=== PATIENT | female | born 1985 ===

== ENCOUNTER → 2021-05-08 13:51 | Outpatient (BNVA) | payer MEDICARE, SELFPAY | PROVIDERS: PCP Internal Medicine; Visit Provider Psychiatry & Neurology Neurology | DX: G24.3 Spasmodic torticollis (principal); G43.909 Migraine, unspecified, not intractable, without status migrainosus | CPT/HCPCS: 64616; 99211; J0585 ==

== ENCOUNTER → 2021-08-07 10:23 | Outpatient (BNVA) | payer MEDICARE, SELFPAY | PROVIDERS: PCP Family Medicine; Visit Provider Psychiatry & Neurology Neurology | DX: G24.3 Spasmodic torticollis (principal); G43.909 Migraine, unspecified, not intractable, without status migrainosus; H53.9 Unspecified visual disturbance; R42 Dizziness and giddiness | CPT/HCPCS: 64616; 99211; J0585 ==

== ENCOUNTER 2021-08-28 18:27 | Outpatient (REF) | payer MEDICARE, MEDICAID, SELFPAY ==
--- NOTE | ~2021-08-28 | MR_ITS ---
EXAMINATION: MR ANGIOGRAPHY BRAIN WITHOUT CONTRAST MRI BRAIN WITHOUT CONTRAST CLINICAL INFORMATION: 36-year-old with migraines, unspecified, not intractable. COMPARISON: None. MR BRAIN TECHNIQUE: Multiplanar multisequence MR imaging of the brain was done without IV contrast. FINDINGS: Brain Volume: Within normal limits. Structural: No malformations. Brain and Meninges: DWI sequence demonstrates no restricted diffusion to suggest acute or subacute cerebral ischemia. The brain is normal in morphology. Plummer-white matter interface is preserved. There is a 3 mm linear zone of FLAIR signal hyperintensity in the left frontal subcortical white matter which is nonspecific, with a similar small focus in the left subcortical parietal white matter. Otherwise, the brain is normal in signal intensity. Gradient refocused imaging demonstrates no evidence for hemorrhage, hemosiderin staining or abnormal mineral deposition. No extra-axial fluid collections, space-occupying process or mass effect are identified. Ventricles and Subarachnoid Spaces: The ventricular system and subarachnoid spaces are within normal limits without hydrocephalus. Orbital Structures: The visualized orbital structures are grossly unremarkable within the limitations of the study. Vascular: Signal voids are noted in the visualized major intracranial vessels. Osseous Structures, Sinuses/Mastoids, Extracranial Soft Tissues: 1 cm retention cyst right maxillary sinus and minor mucosal thickening in the ethmoid complex. Mild nasal septal deviation to the right. MR/MR head/brain wo con IMPRESSION: 1. A few small linear foci of FLAIR signal hyperintensity noted in the subcortical white matter of the left frontal and parietal lobes, which are nonspecific findings of indeterminate significance. 2. Otherwise unremarkable noncontrast MRI of the brain. 3. Minor sinonasal findings as discussed above. MRA BRAIN TECHNIQUE: 3-D [id number] MR angiography of the intracranial circulation was done with multiplanar reformatted reconstructions. FINDINGS: The visualized intracranial vessels demonstrate normal caliber and configuration. There is no evidence for major vessel occlusion or significant focal arterial stenosis. No intracranial aneurysms are identified and there are no high-flow vascular malformations. IMPRESSION: Normal intracranial MRA.
--- NOTE | ~2021-08-28 | MR_ITS ---
EXAMINATION: MR ANGIOGRAPHY BRAIN WITHOUT CONTRAST MRI BRAIN WITHOUT CONTRAST CLINICAL INFORMATION: 36-year-old with migraines, unspecified, not intractable. COMPARISON: None. MR BRAIN TECHNIQUE: Multiplanar multisequence MR imaging of the brain was done without IV contrast. FINDINGS: Brain Volume: Within normal limits. Structural: No malformations. Brain and Meninges: DWI sequence demonstrates no restricted diffusion to suggest acute or subacute cerebral ischemia. The brain is normal in morphology. Plummer-white matter interface is preserved. There is a 3 mm linear zone of FLAIR signal hyperintensity in the left frontal subcortical white matter which is nonspecific, with a similar small focus in the left subcortical parietal white matter. Otherwise, the brain is normal in signal intensity. Gradient refocused imaging demonstrates no evidence for hemorrhage, hemosiderin staining or abnormal mineral deposition. No extra-axial fluid collections, space-occupying process or mass effect are identified. Ventricles and Subarachnoid Spaces: The ventricular system and subarachnoid spaces are within normal limits without hydrocephalus. Orbital Structures: The visualized orbital structures are grossly unremarkable within the limitations of the study. Vascular: Signal voids are noted in the visualized major intracranial vessels. Osseous Structures, Sinuses/Mastoids, Extracranial Soft Tissues: 1 cm retention cyst right maxillary sinus and minor mucosal thickening in the ethmoid complex. Mild nasal septal deviation to the right. MR/MR angio head wo con IMPRESSION: 1. A few small linear foci of FLAIR signal hyperintensity noted in the subcortical white matter of the left frontal and parietal lobes, which are nonspecific findings of indeterminate significance. 2. Otherwise unremarkable noncontrast MRI of the brain. 3. Minor sinonasal findings as discussed above. MRA BRAIN TECHNIQUE: 3-D ydes-bm-ogyial MR angiography of the intracranial circulation was done with multiplanar reformatted reconstructions. FINDINGS: The visualized intracranial vessels demonstrate normal caliber and configuration. There is no evidence for major vessel occlusion or significant focal arterial stenosis. No intracranial aneurysms are identified and there are no high-flow vascular malformations. IMPRESSION: Normal intracranial MRA.
== END 2021-08-28 18:28 | disposition home or self-care (01) ==
LOC: HO.MRI 18:27
PROVIDERS: Visit Provider Psychiatry & Neurology Neurology
DX: G43.909 Migraine, unspecified, not intractable, without status migrainosus (principal); R42 Dizziness and giddiness; H53.9 Unspecified visual disturbance
CPT/HCPCS: 70544; 70551

== ENCOUNTER → 2021-11-16 14:58 | Outpatient (BNVA) | payer MEDICARE, SELFPAY | PROVIDERS: PCP Family Medicine; Visit Provider Psychiatry & Neurology Neurology | DX: M47.812 Spondylosis without myelopathy or radiculopathy, cervical region (principal); G43.909 Migraine, unspecified, not intractable, without status migrainosus; G24.09 Other drug induced dystonia; T48.295A Adverse effect of other drugs acting on muscles, initial encounter; R42 Dizziness and giddiness; H53.9 Unspecified visual disturbance | CPT/HCPCS: 64616; 99211; J0585 ==

== ENCOUNTER 2021-12-25 15:53 | Outpatient (REF) | payer MEDICARE, BC, SELFPAY ==
--- NOTE | ~2021-12-25 | XR_ITS ---
EXAMINATION: XR CERVICAL SPINE CLINICAL INFORMATION: M47.812 - Spondylosis without myelopathy or radiculopathy, cervical region COMPARISON: MR brain 08/28/2021 TECHNIQUE: Radiographs cervical spine are obtained in 5 views. FINDINGS: There is straightening cervical lordosis. There are postsurgical changes at C5-C6 with zero profile implant. The hardware is intact. There is no destructive process or osteolysis. No vertebral compression, spondylolisthesis, or prevertebral soft tissue swelling. The odontoid appears intact. No focal disc narrowing or erosive change. There is mild spurring anterior inferior C6 vertebral body. No perched facet. XR/XR cervical spine 3V IMPRESSION: -Postsurgical changes C5-C6. Hardware intact. No destructive process or osteolysis. -No vertebral compression, spondylolisthesis, or prevertebral soft tissue swelling.
== END 2021-12-25 15:54 | disposition home or self-care (01) ==
LOC: HO.XRAY 15:53
PROVIDERS: Visit Provider Psychiatry & Neurology Neurology
DX: M47.812 Spondylosis without myelopathy or radiculopathy, cervical region (principal)
CPT/HCPCS: 72040

== ENCOUNTER → 2021-12-28 10:54 | Outpatient (BNVA) | payer MEDICARE, BC, SELFPAY | PROVIDERS: PCP Family Medicine; Visit Provider Nurse Practitioner Family | DX: M47.812 Spondylosis without myelopathy or radiculopathy, cervical region (principal); M54.81 Occipital neuralgia; G24.3 Spasmodic torticollis | CPT/HCPCS: 99212 ==

== ENCOUNTER 2022-01-04 07:23 | Outpatient (REF) | payer MEDICARE, BC, SELFPAY ==
--- NOTE | ~2022-01-04 | MR_ITS ---
EXAMINATION: MR CERVICAL SPINE WITHOUT CONTRAST CLINICAL INFORMATION: Headaches. Neck pain. COMPARISON: X-ray dated 12/25/2021. TECHNIQUE: Multiplanar, multisequential imaging of the cervical spine was performed without contrast. FINDINGS: VERTEBRAL BODIES AND PARASPINAL SOFT TISSUES: Status post anterior cervical fusion with hardware instrumentation at the C5-C6 level. Mild rightward curvature of the mid cervical spine. The marrow signal is homogeneous. No compression fractures or subluxations are seen. The paraspinal soft tissues are normal. The vertebral artery flow-voids are maintained. The lung apices are clear. CERVICOMEDULLARY JUNCTION AND VISUALIZED POSTERIOR FOSSA: The craniovertebral junction and imaged portions of the brain parenchyma appear normal. No cord signal abnormality or syrinx is seen. SPINAL LEVELS: C2-C3: No disc pathology. Minimal endplate spurring without central canal stenosis or foraminal narrowing. C3-C4: Shallow disc-osteophyte complex without central canal stenosis or foraminal narrowing. C4-C5: No disc pathology. Mild endplate spurring. No central canal stenosis or foraminal narrowing. C5-C6: Post fusion changes with mild endplate spurring. No central canal stenosis. Kmxf-lx-[id number] left foraminal narrowing. C6-C7: Minimal annular bulge without central canal stenosis or foraminal encroachment. Mild posterior ligamentous thickening. C7-T1: No disc pathology. Patent central canal and foramina. MR/MR cervical spine wo con IMPRESSION: Very mild spondylitic changes, status post anterior cervical discectomy and fusion with hardware instrumentation at the C5-C6 level. No central canal stenosis or focal disc protrusion. Dmbo-vu-[id number] left foraminal narrowing at the C5-C6 level.
== END 2022-01-04 07:24 | disposition home or self-care (01) ==
LOC: HO.MRI 07:23
PROVIDERS: Visit Provider Nurse Practitioner Family
DX: M47.812 Spondylosis without myelopathy or radiculopathy, cervical region (principal); G24.3 Spasmodic torticollis; M54.81 Occipital neuralgia; R51.9 Headache, unspecified; Z98.1 Arthrodesis status
CPT/HCPCS: 72141

== ENCOUNTER 2022-04-26 11:00 | Outpatient (RCR) | payer MEDICARE, BC, SELFPAY | END 2022-04-26 11:52 | disposition home or self-care (01) | LOC: HO.PT 11:00 | PROVIDERS: Visit Provider Obstetrics & Gynecology | DX: R10.2 Pelvic and perineal pain (principal); N80.9 Endometriosis, unspecified | CPT/HCPCS: 97110; 97112; 97140; 97161 ==

== ENCOUNTER 2023-01-18 15:18 | Outpatient (AMB) | payer MEDICARE, BC, SELFPAY ==
--- NOTE | 2023-01-18 15:20 | MHC.OFFVIS ---
Intake Vital Signs 01/18/23 15:24 Height 5 ft 2 in Weight 109 lb 8 oz BMI 20.0 BP 114/78 Blood Pressure Location Rt brachial Position Sitting Intake Visit Reasons: f/u appointment for headaches-Confirmed Intake Note: Patient presents for appointments headaches. Patient states my headaches are a little bit better the imitrex helps . Allergies paprika Allergy (Severe, Verified 01/18/23 15:26) Anaphylaxis acetaminophen [From Vicodin] Allergy (Mild, Verified 01/18/23 15:26) Itching hydrocodone [From Vicodin] Allergy (Mild, Verified 01/18/23 15:26) Itching oxycodone [From PERCOCET] Allergy (Unknown, Verified 01/18/23 15:26) ITCH AND HIVES Medication List - Last Reconciled 01/18/23 by WES Bolden baclofen 10 mg PO TID 30 days cetirizine (Allergy Relief (cetirizine)) 10 mg PO DAILY epinephrine 0.3 mg IM Q4H PRN gabapentin 300 mg PO BEDTIME 30 days gabapentin 100 - 200 mg (1 - 2 x 100 mg) PO BID 30 days onabotulinumtoxinA (Botox) 200 units to be injected by physician to neck muscles for dystonia; pyridostigmine bromide 60 mg PO TID sumatriptan succinate 50 - 100 mg orally at onset of headache, may repeat in 2 hrs PRN; max 2 tabs per day or 4 tabs/week (may take with Ibuprofen) 30 days topiramate 25 mg PO BID 30 days trazodone 25 - 50 mg PO BEDTIME HPI HPI Comments History of Present Illness Details 37-yr-old female presents for f/u visit. 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 Pt reports her headaches have been significantly better since she started wearing a neuroprism. Sumatriptan is effective. She continues to have neck tightness, spasms, tension- worsened by stress, end of day. No head tremor. She cannot afford the Botox co-pays. She is using Baclofen prn- 2-3 times per week. 12/28, MR/MR cervical spine wo con IMPRESSION: Very mild spondylitic changes, status post anterior cervical discectomy and fusion with hardware instrumentation at the C5-C6 level. No central canal stenosis or focal disc protrusion. Qpiv-ps-[id number] left foraminal narrowing at the C5-C6 level. PFSH Medical History (Updated 12/28/21 @ 12:02 by WES Bolden) Thyroid activity decreased PFO (patent foramen ovale) Cervical spondylosis PVC (premature ventricular contraction) Acarophobia Anxiety Bipolar 2 disorder Surgical History (Updated 01/18/23 @ 15:27 by ZAHEER Mitchell) H/O breast biopsy Family History Mother PCO (posterior capsular opacification), left Hx of coronary angioplasty Social History Alcohol intake: never Patient Tobacco Use Status: Never used Tobacco Review of Systems Const All systems reviewed & are unremarkable except as noted in HPI and below Physical Exam Vital Signs: Last Vital Signs BP 114/78 01/18/23 15:24 BMI result Body Mass Index 20.0 Const General: cooperative and no acute distress Orientation/consciousness: patient oriented x3 HEENT Head: Yes normocephalic Resp Effort & Inspection: normal respiratory effort and able to speak in complete sentences Neuro Other: Bilateral posterior cervical tightness General: patient oriented x3, gait normal and CN's II-XI intact bilaterally Cognition (Neuro): normal cognition Motor exam (neuro): 5/5 motor strength present throughout Psych Appearance: grossly normal Mental Status: mental status grossly normal Speech and movement: Normal speech and movement present Affect: normal affect Attitude: cooperative Thought process: Normal thought process present Thought content: Normal thought content present Insight: Good insight present (Psych) Judgement: Good judgement present (Psych) Assessment & Plan Assessment & Plan (1) Migraine: Code(s): G43.909 - Migraine, unspecified, not intractable, without status migrainosus (2) Spasmodic torticollis: Code(s): G24.3 - Spasmodic torticollis (3) Occipital neuralgia of right side: Code(s): M54.81 - Occipital neuralgia Plan C-spine MRI- Very mild spondylitic changes, status post anterior cervical discectomy and fusion with hardware at C5-C6. [id number] left foraminal narrowing at C5-C6. Take Baclofen 10mg qhs, may use prn up to max 10mg tid. Continue Gabapentin 200mg bid and 300mg qhs. Continue Topiramate. Continue Sumatriptan prn. Pt would benefit from resuming Botox when able. f/u in 6 months or sooner prn Medications: Refilled baclofen 10 mg PO TID 30 days 90 tabs 3RF gabapentin 100 - 200 mg (1 - 2 x 100 mg) PO BID 30 days 120 caps 6RF Coding Level of Care Code Est Pt Level 4 (55784) Diagnoses Migraine G43.909 Spasmodic torticollis G24.3 Occipital neuralgia of right side M54.81
[2023-01-18 15:24] VITALS: BP 114/78
== END 2023-01-18 16:00 ==
PROVIDERS: PCP Family Medicine; Visit Provider Nurse Practitioner Family
DX: G43.909 Migraine, unspecified, not intractable, without status migrainosus (principal); G24.3 Spasmodic torticollis; M54.81 Occipital neuralgia
CPT/HCPCS: 99214

== ENCOUNTER → 2023-01-18 15:18 | Outpatient (BNVA) | payer MEDICARE, BC, SELFPAY | PROVIDERS: PCP Family Medicine; Visit Provider Nurse Practitioner Family | DX: G43.909 Migraine, unspecified, not intractable, without status migrainosus (principal); G24.3 Spasmodic torticollis; M54.81 Occipital neuralgia | CPT/HCPCS: 99212 ==

== ENCOUNTER 2024-02-26 13:18 | Outpatient (AMB) | payer MEDICARE, BC, SELFPAY ==
--- NOTE | 2024-02-26 13:23 | MHC.OFFVIS ---
Vital Signs 02/26/24 13:27 Height 5 ft 2 in Weight 107 lb BMI 19.6 BP 98/64 Blood Pressure Location Lt brachial Position Sitting Pulse 107 H Pulse Source Pulse Oximeter Pulse Oximetry (%) 95 Oxygen Delivery Method Room Air Intake Visit Reasons: Follow up Embedded Processor Required: No Accompanied by: Self / Same As Patient Allergies paprika Allergy (Severe, Verified 02/26/24 13:27) Anaphylaxis acetaminophen [From Vicodin] Allergy (Mild, Verified 02/26/24 13:27) Itching hydrocodone [From Vicodin] Allergy (Mild, Verified 02/26/24 13:27) Itching oxycodone [From PERCOCET] Allergy (Unknown, Verified 02/26/24 13:27) ITCH AND HIVES Medication List - Last Reconciled 02/26/24 by WES Bolden cetirizine (Allergy Relief (cetirizine)) 10 mg PO DAILY cyclobenzaprine 5 mg PO TID PRN 30 days epinephrine 0.3 mg IM Q4H PRN gabapentin 300 mg PO BEDTIME 30 days gabapentin 100 - 200 mg (1 - 2 x 100 mg) PO BID 30 days onabotulinumtoxinA (Botox) 200 units to be injected by physician to neck muscles for dystonia; pyridostigmine bromide 60 mg PO TID sumatriptan succinate 50 - 100 mg orally at onset of headache, may repeat in 2 hrs PRN; max 2 tabs per day or 4 tabs/week (may take with Ibuprofen) 30 days topiramate 25 mg PO BID 30 days trazodone 25 - 50 mg PO BEDTIME HPI Comments Details: 38-yr-old female presents for f/u visit of migraine and spasmotic torticollis. Pt endorses the following interval medical history changes: Pt sustained a?trace right apical pneumothorax with a small right lung?contusion and right L2-5 transverse process fractures d/t falling off a horse. She was treated at [facility]. Initially was seen in the ER and d/c'd home on pain medication, and then 4 days later presented back to the ER for increased pain and SOB and was admitted for pain control. L-spine fx was tx'd conservatively w/ back bracing x's 1 month. Pneumothorax self-resolved- did not require chest tube. Her cyclobenzaprine dose was increased to 10mg tid (baclofen had previously been stopped and pt had resumed cyclobenzaprine 5mg tid which was more effective), and Gabapentin was increased to 800mg. Residual effects include right sided rib/back pain, numbness/tingling down RLE. Denies weakness, resp difficulties. 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 Through [employer], she also did have skin biopsy- was normal. 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 Is now taking a mitchondrial supplement regimen. She feels this regimen, in addition to the mestinon and naltrexone has increased her energy level some, but still has post-exertion fatigue. She has been having increased neck tightness, spasms, tension over the summer. Has occasional head tremor. No head tremor. She did decrease the Cyclobenzaprine back to 5mg tid however it was no longer as effective as before. She would like to re-address the Gabapentin dose- was previosuly 100mg bid and 300mg qhs- which had worked well. She is having a migraine every 2-3 months, usually if she misses a dose of her muscle relaxer. Pt reports her headaches have been significantly better since she started wearing a neuroprism. Sumatriptan is effective. She cannot afford the Botox co-pays. [facility] Medical History Thyroid activity decreased PFO (patent foramen ovale) Cervical spondylosis PVC (premature ventricular contraction) Acarophobia Anxiety Bipolar 2 disorder Surgical History H/O breast biopsy Family History Mother PCO (posterior capsular opacification), left Hx of coronary angioplasty Social History Alcohol intake: never Patient Tobacco Use Status: Never used Tobacco Physical Exam Vital Signs: Last Vital Signs Pulse 107 H 02/26/24 13:27 BP 98/64 02/26/24 13:27 Pulse Ox 95 02/26/24 13:27 Oxygen Delivery Method Room Air 02/26/24 13:27 BMI result Body Mass Index 19.6 Const General: cooperative and no acute distress Orientation/consciousness: patient oriented x3 HEENT Head: Yes normocephalic Resp Effort & Inspection: normal respiratory effort and able to speak in complete sentences Neuro Other: Mild RUE elbow tone Mild RUE postural tremor. Alexander Elder- negative General: patient oriented x3, gait normal and CN's II-XI intact bilaterally Cognition (Neuro): normal cognition Gait exam (Neuro): Normal gait present Motor exam (neuro): 5/5 motor strength present throughout Deep tendon reflexes (DTR's): Right triceps reflex intensity grade: 2+, Left triceps reflex intensity grade: 2+, Rt Biceps (C5, C6): 2+, Left biceps reflex intensity grade: 2+, Right brachioradialis reflex intensity grade: 2+, Left brachioradialis reflex intensity grade: 2+, Right patellar reflex intensity grade: 3+ and Left patellar reflex intensity grade: 2+ Psych Appearance: grossly normal Mental Status: mental status grossly normal Speech and movement: Normal speech and movement present Affect: normal affect Attitude: cooperative Thought process: Normal thought process present Thought content: Normal thought content present Insight: Good insight present (Psych) Judgement: Good judgement present (Psych) Assessment & Plan Assessment & Plan (1) Migraine: Code(s): G43.909 - Migraine, unspecified, not intractable, without status migrainosus Category: Medical (2) Spasmodic torticollis: Code(s): G24.3 - Spasmodic torticollis Category: Medical (3) Closed lumbar vertebral fracture: Comment: 09/14/23 s/p fall from horse- right L2-5 transverse process fractures Code(s): S32.009A - Unspecified fracture of unspecified lumbar vertebra, initial encounter for closed fracture Category: Medical Plan Continue Cyclobenzaprine 10mg tid. Continue Gabapentin 100-200mg bid and 300mg qhs. Continue Topiramate 50 mg qhs Continue Sumatriptan 1000mg prn. Pt would benefit from resuming Botox if it becomes more affordable. f/u in 6 months or sooner prn Medications: New topiramate 50 mg PO BEDTIME 30 tabs 6RF 30 days cyclobenzaprine 10 mg PO TID 90 tabs 6RF 30 days Refilled gabapentin 100 - 200 mg (1 - 2 x 100 mg) PO BID 120 caps 6RF 30 days gabapentin 300 mg PO BEDTIME 30 caps 6RF 30 days Discontinued onabotulinumtoxinA (Botox) Discontinued Reason: Doctor's Order 200 units to be injected by physician to neck muscles for dystonia; 1 ea 1RF cyclobenzaprine Discontinued Reason: Doctor's Order 5 mg PO TID 30 days PRN 90 tabs 3RF muscle spasm topiramate Discontinued Reason: Ancillary Entered New Order 25 mg PO BID 30 days 60 tabs 6RF Coding Level of Care Code Est Pt Level 4 (19896) Diagnoses Migraine G43.909 Spasmodic torticollis G24.3 Closed lumbar vertebral fracture S32.009A
[2024-02-26 13:27] VITALS: BP 98/64; PULSE 107; O2SAT 95; BMI 19.6
== END 2024-02-26 14:28 | disposition home or self-care (01) ==
PROVIDERS: PCP Family Medicine; Visit Provider Nurse Practitioner Family
DX: G43.909 Migraine, unspecified, not intractable, without status migrainosus (principal); G24.3 Spasmodic torticollis; S32.009A Unspecified fracture of unspecified lumbar vertebra, initial encounter for closed fracture
CPT/HCPCS: 99214

== ENCOUNTER → 2024-02-26 13:18 | Outpatient (BNVA) | payer MEDICARE, BC, SELFPAY | PROVIDERS: PCP Family Medicine; Visit Provider Nurse Practitioner Family | DX: G43.909 Migraine, unspecified, not intractable, without status migrainosus (principal); G24.3 Spasmodic torticollis; S32.009A Unspecified fracture of unspecified lumbar vertebra, initial encounter for closed fracture | CPT/HCPCS: 99212 ==